=== PATIENT | female | born 1945 | race Caucasian/White ===

== ENCOUNTER 2023-11-11 09:15 | Day surgery (SDC) | payer MEDICARE ==
[2023-11-04 10:37] VITALS: BMI 20.2
[~2023-11-11 09:15] MED LIST: LACTATED RINGERS 1,000 ML IV SCH
[2023-11-11 09:53] VITALS: TEMP 97.5
[2023-11-11 10:02] LABS: Glucose,Whole Blood 80 mg/dL (70-110)
[2023-11-11] MEDS ORDERED: PROPOFOL 10 MG/ML 20 ML VIAL IV ONE (10:08)
[2023-11-11 10:17] VITALS: RESP 16
--- NOTE | 2023-11-11 10:35 | P.PCN ---
Date of Procedure: 11/11/23 Procedure(s) Performed: BRIEF HISTORY: Patient is a 78-year-old pleasant female scheduled for an elective colonoscopy as a part of screening for colon cancer. PROCEDURE PERFORMED: Colonoscopy with biopsy. PREOPERATIVE DIAGNOSIS: Screening for colon cancer. IV sedation per Anesthesia. PROCEDURE: After informed consent was obtained, the patient, was brought into the endoscopy unit. IV sedation was administered by Anesthesia under continuous monitoring. Digital rectal examination was normal. Initially the Olympus CF-160 flexible video colonoscope was then inserted in the rectum, gradually advanced into the cecum with moderate to severe difficulty. Careful examination was performed as the scope was gradually being withdrawn. Ileocecal valve and the appendiceal orifice were visualized and appeared normal. Prep was excellent. Mucosa of the cecum, a 4 mm sessile polyp that was removed by cold biopsy. Rest of the ascending colon, transverse colon, descending colon, sigmoid colon, and rectum appeared normal. Scattered sigmoid diverticulosis. Retroflexion was performed in the rectum and no lesions were seen. The patient tolerated the procedure well. IMPRESSION: 3-4 mm sessile cecal polyp status post cold biopsy Scattered left sided diverticulosis RECOMMENDATIONS: Findings of this examination were discussed with the patient as well as a family. She was advised to follow with the biopsy results if the biopsy result adenoma she can have a repeat colonoscopy in 5 years..
[2023-11-11 11:03] VITALS: BP 145/79; PULSE 81
== END 2023-11-11 11:15 | disposition home or self-care (01) ==
LOC: ORWHC2ENDO 09:15
PROVIDERS: ATTEND Internal Medicine Gastroenterology
DX: Z12.11 Encounter for screening for malignant neoplasm of colon (principal); D12.0 Benign neoplasm of cecum; K57.30 Diverticulosis of large intestine without perforation or abscess without bleeding; Z80.0 Family history of malignant neoplasm of digestive organs
CPT/HCPCS: 88305; 45380; J2704

== ENCOUNTER → 2024-11-08 | Outpatient (CLI) | payer MEDICARE ==
--- NOTE | 2024-11-17 11:52 | MM ---
Reason for Exam: Hx of breast cancer, conservation therapy. Last screening mammogram was performed 12 month(s) ago. Patient History: Menarche at age 14. First Full-Term at age 28. Postmenopausal. Breast cancer, left, age 68. Patient used Estrogen and Progesterone for 15 years. 2012, US biopsy breast VAD LT - 2 on the Left side. 2012, US breast needle core RT on the Right side. Prior Study Comparison: 02/26/2022 Bilateral Screening Mammogram, [facility]. 10/30/2023 Bilateral Screening Mammogram, [facility] [place]. Tissue Density: The breasts are heterogeneously dense, which may obscure small masses. Findings: Analyzed By CAD. Postsurgical changes left breast. There is an area of distortion superior left MLO view middle to posterior depth which appears more pronounced. This could represent an area of post surgical change and superimposition shadow but additional spot compression is recommended to ensure an appearance similar to prior studies. Microclip right breast from prior biopsy. Benign oil cyst calcification on the left and a few scattered areas of dermal calcification medially in the breast. Otherwise, no significant change. Overall Assessment: Incomplete: need additional imaging evaluation, BI-RAD 0 Management: Special View Mammogram of the left breast. Additional views to include 3-D XCCL, spot 3-D MLO, and 3-D lateral views. [facility] will attempt to contact patient to return for supplemental views and ultrasound if indicated. [facility], , 11/17/2024 11:49 AM. Electronically signed and approved by: Clint Aquino M.D. Radiologist
--- NOTE | 2024-11-17 15:27 | BD ---
EXAMINATION TYPE: Axial Bone Density DATE OF EXAM: 11/17/2024 CLINICAL HISTORY: 79 years old Female. ICD-10 CODE: C50.919 BREAST CX M81.0 OSTEOPENIA , Additional History: Height: 60" Weight: 119lbs FRAX RISK QUESTIONS: Alcohol (3 or more units per day): No Family History (Parent hip fracture): No Glucocorticoids (More than 3mos): No (Ex: prednisone, prednisolone, methylprednisolone, dexamethasone, and hydrocortisone). History of Fracture in Adulthood: No Secondary Osteoporosis: 1. Type 1 Diabetes: No 2. Hyperthyroidism: No 3. Menopause before 45: Yes 4. Malnutrition: No 5. Chronic liver disease: No Rheumatoid Arthritis: No Current Tobacco Use: No RISK FACTORS HISTORY OF: Hip Fracture (Right/Left): No Spine Fracture: No History of Wrist Fracture: No Surgery to Spine/Hip(right/left)/Wrist (right/left): No MEDICATIONS: Thyroid Medications: No Osteoporosis Medications: No EXAM MEASUREMENTS: Bone mineral densitometry was performed using the [employer] System. Bone mineral density as measured about the Lumbar spine is: ----- L1-L4(G/cm2): 1.042 T Score Values are as follows: ----- L1: -1.8 ----- L2: -1.3 ----- L3: -0.5 ----- L4: -1.3 ----- L1-L4: -1.1 Z Score Values are as follows: ----- L1: 0.4 ----- L2: 0.9 ----- L3: 1.7 ----- L4: 0.9 ----- L1-L4: 1.0 Baseline @MPH Bone mineral density about the R hip (g/cm2): 0.885 Bone mineral density about the L hip (g/cm2): 0.826 T Score values are as follows: -----R Neck: -1.4 -----L Neck: -1.5 -----R Total: -1.0 -----L Total: -1.4 Z Score values are as follows: -----R Neck: 0.9 -----L Neck: 0.7 -----R Total: 1.1 -----L Total: 0.7 Baseline @MPH FRAX%s: The graph provided illustrates a 12.0% chance for a major osteoporotic fx and a 2.8% chance f or the hips probability for fx in 10 years time. IMPRESSION: Osteopenia (T Score between -2.5 and -1). There is slightly increased risk of fracture and the patient may be considered for treatment. Re-Screen 2-5 years. NOTE: T-SCORE=SD OF THE YOUNG ADULT MEAN. [facility], , 11/17/2024 3:24 PM
== END | disposition home or self-care (01) ==
LOC: RADMAMWWP 13:01
PROVIDERS: ATTEND Internal Medicine
DX: Z85.3 Personal history of malignant neoplasm of breast (principal); Z78.0 Asymptomatic menopausal state; R92.333 Mammographic heterogeneous density, bilateral breasts; Z98.82 Breast implant status; R92.2 Inconclusive mammogram
CPT/HCPCS: 77066; G0279; 77062

== ENCOUNTER → 2024-11-22 | Outpatient (CLI) | payer MEDICARE ==
--- NOTE | 2024-11-22 13:08 | MM ---
Reason for Exam: Follow-up at short interval from prior study. Last screening mammogram was performed less than 1 month ago. Patient History: Menarche at age 14. First Full-Term at age 28. Postmenopausal. Breast cancer, left, age 68. Patient used Estrogen and Progesterone for 15 years. 2012, US biopsy breast VAD LT - 2 on the Left side. 2012, US breast needle core RT on the Right side. Prior Study Comparison: 02/26/2022 Bilateral Screening Mammogram, [facility]. 10/30/2023 Bilateral Screening Mammogram, [facility] [place]. 11/08/2024 Bilateral MG 3D diag mammo w/cad MARS, [facility]. Tissue Density: Left: There are scattered areas of fibroglandular density. Findings: Analyzed By CAD. Area of concern in the left breast appears not significantly changed from multiple priors and is possibly related to scarring. Short-term follow-up six-month left breast diagnostic mammogram with spot compression imaging for stability is recommended. Overall Assessment: Probably benign, BI-RAD 3 Management: Diagnostic Mammogram of the left breast in 6 months. Results were given to the patient verbally at the time of exam. Patient should continue monthly self-breast exams. A clinical breast exam by your physician is recommended on an annual basis. This exam should not preclude additional follow-up of suspicious palpable abnormalities. Note on Roberta scores and lifetime risk: 1. A Roberta score greater than 3% is considered moderate risk. If this is the case, consider specialist referral to assess eligibility for a risk reducing agent. 2. If overall lifetime risk for the development of breast cancer is 20% or higher, the patient may qualify for future screening with alternating mammogram and breast MRI. [facility], , 11/22/2024 1:05 PM. Electronically signed and approved by: John Kumar DO
== END | disposition home or self-care (01) ==
LOC: RADMAMWWP 12:32
PROVIDERS: ATTEND Internal Medicine
DX: Z53.9 Procedure and treatment not carried out, unspecified reason (principal)

== ENCOUNTER → 2025-05-20 | Outpatient (CLI) | payer MEDICARE ==
--- NOTE | 2025-05-20 13:22 | USB ---
Reason for Exam: Follow-up at short interval from prior study. Patient History: Menarche at age 14. First Full-Term at age 28. Postmenopausal. Breast cancer, left, age 68. Patient used Estrogen and Progesterone for 15 years. 2012, US biopsy breast VAD LT - 2 on the Left side. 2012, US breast needle core RT on the Right side. Technique: Method: Targeted. Prior Study Comparison: 10/30/2023 Bilateral Screening Mammogram, [facility] [place]. 11/08/2024 Bilateral MG 3D diag mammo w/cad MARS, [facility]. 11/22/2024 Left MG 3D follow up no charge LT, [facility]. Findings: The upper outer quadrant of the left breast, the upper inner quadrant of the left breast, the axilla of the left breast and the retroareolar of the left breast were scanned. Technique utilized:US breast limited LT Image; Ultrasound imaging of: All 4 quadrants, the retroareolar region and axilla. No evidence for organizing fluid collection or mass. Overall Assessment: Negative, BI-RAD 1 Management: Screening Mammogram of both breasts in 1 year. It should be noted that previously a diagnostic mammogram was recommended, not in ultrasound for this finding since it was not seen on ultrasound. A clinical breast exam by your physician is recommended on an annual basis and results should be correlated with mammographic findings. This exam should not preclude additional follow-up of suspicious palpable abnormalities. Results were given to the patient verbally at the time of exam. [facility], , 05/20/2025 1:18 PM. Electronically signed and approved by: John Kumar DO
== END | disposition home or self-care (01) ==
LOC: RADUSWWP 12:28
PROVIDERS: ATTEND Internal Medicine
DX: Z08 Encounter for follow-up examination after completed treatment for malignant neoplasm (principal); Z85.3 Personal history of malignant neoplasm of breast; Z78.0 Asymptomatic menopausal state